=== PATIENT | male | born 1970 | race Caucasian/White ===

== ENCOUNTER 2017-07-27 16:02 | Emergency (ER) | payer MEDICARE ==
[~2017-07-27] VITALS: Ht 175.3 cm; Wt 77.0 kg
[2017-07-27] MEDS ORDERED: NOVOLOG100 UNIT/M (16:27)
[2017-07-27] MEDS ORDERED: LANTUS100 UNIT/M SC (16:28)
[2017-07-27] MEDS ORDERED: DILAUDID8 MG PO (16:29)
[2017-07-27] MEDS ORDERED: PHENERGAN25 MG/TAB PO (16:29)
[2017-07-27] MEDS ORDERED: BENADRYL 25MG C25 MG PO (16:30)
[2017-07-27 17:52] VITALS: BP 136/94
== END 2017-07-27 18:34 | disposition home or self-care (01) ==
LOC: ED 16:02
DX: R10.12 Left upper quadrant pain (principal); R11.0 Nausea; K31.84 Gastroparesis